=== PATIENT | male | born 1990 | race Two or more races ===

== ENCOUNTER 2023-07-10 07:39 | Inpatient (IN) | payer MEDICAID ==
[~2023-07-10] VITALS: Ht 177.8 cm; Wt 87.2 kg
[2023-07-10] MEDS ORDERED: LORazepam 2MG/ML-1ML VIAL IV ONE (08:00)
[2023-07-10] MEDS ORDERED: ONDANSETRON HCL 4 MG/2 ML VIAL IV ONE (08:00)
[2023-07-10] MEDS ORDERED: SODIUM CHLORIDE 0.9% 1,000 ML IV ONE (08:00)
[2023-07-10] MEDS ORDERED: MORPHINE SULFATE 4 MG/ML SYR/VIAL IV ONE (08:00)
[2023-07-10 08:29] LABS: Basophils # (auto) 0 10 ^3/uL (0-0.2); Basophils % (auto) 0.4 % (0.0-2.0); Eosinophils # (auto) 0 10 ^3/uL (0-0.8); Eosinophils % (auto) 0.4 % (0.0-7.0); Hematocrit 49.5 % (41.0-53.0); Hemoglobin 17.3 g/dL (13.5-17.5); Lymphocytes # (auto) 2.8 10 ^3/uL (0.4-5.4); Lymphocytes % (auto) 29.7 % (10.0-50.0); Mean Corpuscular Hemoglobin 32.8 pg (28.0-32.0); Mean Corpuscular Volume 93.7 fL (80.0-100.0); Monocytes # (auto) 0.7 10 ^3/uL (0-1.3); Monocytes % (auto) 7.9 % (0.0-12.0); Neutrophils # (auto) 5.8 10 ^3/uL (1.6-8.6); Neutrophils % (auto) 61.6 % (37.0-80.0); Nucleated Red Blood Cells % 0.5 %; Red Blood Cells 5.28 10^6/uL (4.5-5.90); Red Cell Distribution Width 12.1 % (11.8-14.3); White Blood Cell 9.4 10^3/uL (4.4-10.8)
[2023-07-10 08:38] LABS: Amphetamine Screen, Urine Neg (NEGATIVE); Barbiturate Scree,Urine Neg (NEGATIVE); Benzodiazephine Screen, Urine Neg (NEGATIVE); Cannabinoid Screen, Urine Neg (NEGATIVE); Cocaine Screen, Urine Neg (NEGATIVE); Opiate Scree,Urine Neg (NEGATIVE); Phencyclidine Screen, Urine Neg (NEGATIVE)
[2023-07-10 08:41] LABS: Alanine Aminotransferase 37 U/L (7-40); Albumin 4.7 g/dL (3.2-4.8); Alkaline Phosphatase 107 U/L (46-116); Anion Gap 10 (5-15); Aspartate Aminotransferase 26 U/L (13-40); BUN/Creatinine Ratio 12.6 (10.0-20.0); Blood Alcohol 91.4 mg/dL (<10); Blood Urea Nitrogen 12 mg/dL (9-23); Calcium 9.3 mg/dL (8.5-10.1); Carbon Dioxide 28 mmol/L (20-30); Chloride 102 mmol/L (98-107); Glucose 116 mg/dL (74-106); Potassium 3.8 mmol/L (3.5-5.1); Sodium 140 mmol/L (136-145)
[2023-07-10 08:42] LABS: Bilirubin, Total 1.1 mg/dL (0.2-1.0); Total Protein 7.4 g/dL (5.7-8.2)
[2023-07-10 08:51] LABS: INR 1.1 (0.9-1.15); Prothrombin Time 11.5 sec (9.3-11.8)
[2023-07-10 09:00] VITALS: PULSE 81; RESP 18; O2SAT 96
[2023-07-10 09:06] LABS: Lipase 30 U/L (12-53)
[2023-07-10 09:07] LABS: Acetaminophen < 2.0 UG/ML (10.0-20.0); Magnesium 1.8 mg/dL (1.6-2.6)
[2023-07-10] MEDS ORDERED: LORazepam MDV 2MG/ML 10 ML IV ONE (09:07)
[2023-07-10] MEDS ORDERED: FOLIC ACID 1 MG, MULTIPLE VITAMIN 10 ML, MAGNESIUM SULF SDV 50% 8 MEQ, THIAMINE INJ 100... INJ ONE ×5 (09:14)
[2023-07-10 09:25] LABS: Salicylate < 3.0 mg/dL (2.8-20.0)
[2023-07-10] MEDS: SODIUM CHLORIDE 0.9% 1,000 ML IV SCH ×2 (13:00→22:48)
[2023-07-10] MEDS ORDERED: OCTREOTIDE ACETATE 100 MCG in SODIUM CHL 0.9% 50 ML IV ONE (13:00)
[2023-07-10] MEDS: PANTOPRAZOLE 40mg/50ML NS AE 50 ML IV SCH ×3 (13:00→23:49)
[2023-07-10] MEDS ORDERED: PANTOPRAZOLE 80 MG in SODIUM CHL 0.9% 100 ML IV ONE (13:00)
[2023-07-10] MEDS ORDERED: DOCUSATE SOD 100 MG CAP PO PRN (13:00)
[2023-07-10] MEDS ORDERED: LORazepam 2MG/ML-1ML VIAL IV PRN (13:15)
[2023-07-10] MEDS: chlordiazePOXIDE HCL 25 MG CAP PO SCH ×2 (15:37→23:38)
[2023-07-10] MEDS: OCTREOTIDE ACETATE 500 MCG in SODIUM CHL 0.9% 99 ML IV SCH (17:02)
[2023-07-10] MEDS ORDERED: FOLIC ACID 1 MG, MAGNESIUM SULF SDV 50% 8 MEQ, MULTIPLE VITAMIN 10 ML, THIAMINE INJ 100... INJ SCH ×5 (18:00)
[2023-07-10 22:04] LABS: Hematocrit 46.4 % (41.0-53.0); Hemoglobin 16.2 g/dL (13.5-17.5)
[2023-07-10] MEDS: MORPHINE SULFATE INJ 2 MG/ml SYRG IV PRN (23:49)
[2023-07-10] MEDS: ONDANSETRON HCL 4 MG/2 ML VIAL IV PRN (23:49)
[2023-07-11] MEDS: OCTREOTIDE ACETATE 500 MCG in SODIUM CHL 0.9% 99 ML IV SCH ×2 (04:46→10:54)
[2023-07-11] MEDS: ONDANSETRON HCL 4 MG/2 ML VIAL IV PRN ×2 (04:51→12:48)
[2023-07-11] MEDS: MORPHINE SULFATE INJ 2 MG/ml SYRG IV PRN ×3 (04:53→22:25)
[2023-07-11] MEDS: SODIUM CHLORIDE 0.9% 1,000 ML IV SCH ×3 (06:01→22:20)
[2023-07-11 06:06] LABS: Basophils # (auto) 0 10 ^3/uL (0-0.2); Basophils % (auto) 0.4 % (0.0-2.0); Eosinophils # (auto) 0.2 10 ^3/uL (0-0.8); Eosinophils % (auto) 1.7 % (0.0-7.0); Hematocrit 45.9 % (41.0-53.0); Hemoglobin 16.2 g/dL (13.5-17.5); Lymphocytes # (auto) 2.5 10 ^3/uL (0.4-5.4); Lymphocytes % (auto) 28.4 % (10.0-50.0); Mean Corpuscular Hemoglobin 32.9 pg (28.0-32.0); Mean Corpuscular Hgb Conc. 35.4 g/dL (32.0-36.0); Monocytes # (auto) 0.7 10 ^3/uL (0-1.3); Monocytes % (auto) 8.5 % (0.0-12.0); Neutrophils # (auto) 5.4 10 ^3/uL (1.6-8.6); Nucleated Red Blood Cells % 0.1 %; Red Blood Cells 4.93 10^6/uL (4.5-5.90); White Blood Cell 8.8 10^3/uL (4.4-10.8)
[2023-07-11 06:41] LABS: Alanine Aminotransferase 24 U/L (7-40); Albumin 4.3 g/dL (3.2-4.8); Alkaline Phosphatase 103 U/L (46-116); Anion Gap 7 (5-15); Aspartate Aminotransferase 23 U/L (13-40); BUN/Creatinine Ratio 11.6 (10.0-20.0); Blood Urea Nitrogen 11 mg/dL (9-23); Carbon Dioxide 28 mmol/L (20-30); Chloride 103 mmol/L (98-107); Glucose 121 mg/dL (74-106); Potassium 3.7 mmol/L (3.5-5.1); Sodium 138 mmol/L (136-145); Total Protein 7.2 g/dL (5.7-8.2)
[2023-07-11 06:50] LABS: Bilirubin, Total 2.8 mg/dL (0.2-1.0)
[2023-07-11] MEDS: chlordiazePOXIDE HCL 25 MG CAP PO SCH ×3 (10:07→22:08)
[2023-07-11 10:48] LABS: Hematocrit 45.3 % (41.0-53.0)
[2023-07-11 11:00] VITALS: PULSE 53; RESP 17; O2SAT 98
[2023-07-11] MEDS: PANTOPRAZOLE 40mg/50ML NS AE 50 ML IV SCH ×2 (12:35→16:22)
[2023-07-11 16:40] VITALS: BP 119/80; PULSE 60; RESP 16; TEMP 97.4; O2SAT 97
[2023-07-11 16:49] VITALS: BP 119/80; PULSE 60; RESP 16; TEMP 97.4; O2SAT 97
[2023-07-11 20:00] VITALS: PULSE 53; RESP 17; O2SAT 97
[2023-07-11 22:06] VITALS: BP 107/74; PULSE 53; RESP 17; TEMP 97.5; O2SAT 97
[2023-07-11] MEDS: PANTOPRAZOLE 40 MG TAB PO SCH (22:08)
[2023-07-12 05:00] VITALS: BP 121/72; PULSE 61; RESP 17; TEMP 97.4; O2SAT 94
[2023-07-12] MEDS: SODIUM CHLORIDE 0.9% 1,000 ML IV SCH ×2 (06:40→16:01)
[2023-07-12 08:25] VITALS: PULSE 70; RESP 21; O2SAT 97
[2023-07-12 09:10] VITALS: BP 120/75; PULSE 70; RESP 21; TEMP 98.2; O2SAT 97
[2023-07-12] MEDS: PANTOPRAZOLE 40 MG TAB PO SCH ×2 (09:29→22:28)
[2023-07-12] MEDS: chlordiazePOXIDE HCL 25 MG CAP PO SCH ×2 (09:29→22:28)
[2023-07-12] MEDS: MORPHINE SULFATE INJ 2 MG/ml SYRG IV PRN ×2 (11:50→22:29)
[2023-07-12 13:00] VITALS: BP 123/64; PULSE 74; RESP 20; TEMP 98; O2SAT 99
[2023-07-12 16:41] VITALS: BP 139/73; PULSE 76; RESP 21; TEMP 98; O2SAT 98
[2023-07-12] MEDS: SUCRALFATE 1 GM TAB PO SCH ×2 (17:45→22:28)
[2023-07-12 22:00] VITALS: BP 115/67; PULSE 81; RESP 16; TEMP 98.4; O2SAT 96
[2023-07-13] MEDS: SODIUM CHLORIDE 0.9% 1,000 ML IV SCH ×2 (00:45→10:39)
[2023-07-13 05:00] VITALS: BP 129/72; PULSE 56; RESP 16; TEMP 98.3; O2SAT 97
[2023-07-13 05:49] LABS: Basophils # (auto) 0 10 ^3/uL (0-0.2); Basophils % (auto) 0.3 % (0.0-2.0); Chloride 109 mmol/L (98-107); Eosinophils # (auto) 0.1 10 ^3/uL (0-0.8); Eosinophils % (auto) 1.7 % (0.0-7.0); Hematocrit 42.2 % (41.0-53.0); Hemoglobin 14.9 g/dL (13.5-17.5); Lymphocytes # (auto) 1.9 10 ^3/uL (0.4-5.4); Lymphocytes % (auto) 28.6 % (10.0-50.0); Mean Corpuscular Hemoglobin 33.2 pg (28.0-32.0); Mean Corpuscular Hgb Conc. 35.2 g/dL (32.0-36.0); Mean Corpuscular Volume 94.4 fL (80.0-100.0); Monocytes # (auto) 0.4 10 ^3/uL (0-1.3); Neutrophils # (auto) 4.3 10 ^3/uL (1.6-8.6); Neutrophils % (auto) 63.4 % (37.0-80.0); Nucleated Red Blood Cells % 0.1 %; Potassium 3.3 mmol/L (3.5-5.1); Red Blood Cells 4.47 10^6/uL (4.5-5.90); Red Cell Distribution Width 12.1 % (11.8-14.3); Sodium 142 mmol/L (136-145); White Blood Cell 6.7 10^3/uL (4.4-10.8)
[2023-07-13 05:50] LABS: Anion Gap 6 (5-15); Calcium 8.4 mg/dL (8.5-10.1); Carbon Dioxide 27 mmol/L (20-30)
[2023-07-13 05:55] LABS: Blood Urea Nitrogen 9 mg/dL (9-23); Glucose 95 mg/dL (74-106)
[2023-07-13] MEDS: SUCRALFATE 1 GM TAB PO SCH ×2 (06:06→11:30)
[2023-07-13] MEDS ORDERED: chlordiazePOXIDE HCL 25 MG CAP PO SCH (07:00)
[2023-07-13 08:00] VITALS: RESP 18
[2023-07-13 09:00] VITALS: BP 114/67; PULSE 60; RESP 21; TEMP 97.9; O2SAT 94
[2023-07-13] MEDS ORDERED: POLYETHYLENE GLYCOL 17 GM PWDR PO ONE (09:30)
[2023-07-13] MEDS: PANTOPRAZOLE 40 MG TAB PO SCH (10:17)
[2023-07-13] MEDS: MORPHINE SULFATE INJ 2 MG/ml SYRG IV PRN (10:38)
[2023-07-13 11:02] LABS: Alanine Aminotransferase 15 U/L (7-40); Albumin 3.5 g/dL (3.2-4.8); Alkaline Phosphatase 79 U/L (46-116); Anion Gap 4 (5-15); Aspartate Aminotransferase 14 U/L (13-40); BUN/Creatinine Ratio 6.8 (10.0-20.0); Bilirubin, Total 0.8 mg/dL (0.2-1.0); Blood Urea Nitrogen 8 mg/dL (9-23); Calcium 8.7 mg/dL (8.5-10.1); Carbon Dioxide 27 mmol/L (20-30); Chloride 110 mmol/L (98-107); Glucose 130 mg/dL (74-106); Potassium 3.5 mmol/L (3.5-5.1); Sodium 141 mmol/L (136-145); Total Protein 5.8 g/dL (5.7-8.2)
[2023-07-13] MEDS ORDERED: SUCR1TAB PO (12:45)
[2023-07-13] MEDS ORDERED: FOLI-119 PO (12:45)
[2023-07-13] MEDS ORDERED: THIA100T43 PO (12:45)
[2023-07-13] MEDS ORDERED: MULTLIQ36 OR (12:45)
[2023-07-13] MEDS ORDERED: PANT40T PO (12:45)
[2023-07-13 13:00] VITALS: BP 106/64; PULSE 60; RESP 20; TEMP 98.2; O2SAT 95
[2023-07-13 13:33] LABS: Lipase 33 U/L (12-53)
[2023-07-13 14:46] VITALS: TEMP 36.8
== END 2023-07-13 16:40 | disposition home or self-care (01) | DRG 241 ==
LOC: ER 07:39 → OVERFLOW 13:05 → CENTRAL 07-11 16:08
PROVIDERS: ADMIT Nurse Practitioner Family; ATTEND Internal Medicine
DX: K29.21 Alcoholic gastritis with bleeding (principal); K70.9 Alcoholic liver disease, unspecified; E86.0 Dehydration; K76.0 Fatty (change of) liver, not elsewhere classified; F10.129 Alcohol abuse with intoxication, unspecified; F10.139 Alcohol abuse with withdrawal, unspecified; Y90.9 Presence of alcohol in blood, level not specified
CPT/HCPCS: 36415; 71045; 74176; 80048; 80053; 80307; 80320; 80329; 82607; 83690; 83735; 84484; 85014; 85018; 85025; 85610; 96361; 96365; 96366; 96367; 96375; 96376; C9113; G0378; J2405